=== PATIENT | male | born 1970 | race Two or more races ===

== ENCOUNTER 2025-06-03 20:47 | Emergency (ER) | payer OTHER, SELFPAY ==
[2025-06-03 20:54] VITALS: BP 138/90; PULSE 73; RESP 18; TEMP 37.1; O2SAT 97; BMI 28.3
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
[2025-06-04 01:59] VITALS: BP 138/90; PULSE 73; RESP 18; TEMP 37.1; O2SAT 97
== END 2025-06-04 02:00 | disposition home or self-care (01) ==
PROVIDERS: Emergency Provider Emergency Medicine
DX: R07.89 Other chest pain (principal); S13.4XXA Sprain of ligaments of cervical spine, initial encounter; V42.5XXA Car driver injured in collision with two- or three-wheeled motor vehicle in traffic accident, initial encounter; Y93.89 Activity, other specified; Y92.488 Other paved roadways as the place of occurrence of the external cause; Y99.8 Other external cause status
CPT/HCPCS: 99283